=== PATIENT | female | born 1990 | race Caucasian/White ===

== ENCOUNTER 2021-01-02 11:37 | Emergency (ER) | payer OTHER ==
[2021-01-02 12:43] LABS: INR 1.13 (0.9-1.2); PROTHROMBIN TIME 13.9 SECONDS (11.8-13.4); PTT 24.6 SECONDS (24.4-34.7)
[2021-01-02 12:50] LABS: BILIRUBIN - TOTAL 0.6 mg/dL (0.2-1.0); BUN/CREAT RATIO (CALC) 16.4 RATIO; CREATININE 0.61 mg/dL (0.51-0.95); GLOBULIN (CALCULATION) 4.4 g/dL; POTASSIUM 3.5 mmol/L (3.5-5.1); TOTAL PROTEIN 8.4 g/dL (6.4-8.2)
[2021-01-02 13:07] LABS: BASOPHIL 0 % (0-2); EOSINOPHIL 0 % (0-5); HGB 15.6 g/dl (12.5-16.0); LYMPHOCYTE 7.2 % (15-48); MCH 28.9 pg (25.0-31.0); MCHC 33.9 g/dL (32.0-36.0); MCV 85.2 fL (78.0-100.0); MONOCYTE 4.5 % (0-12); MPV 9.3 fL (6.0-9.5); NEUTROPHIL 87.9 % (41-80); NRBC 0; PLT 284 K/uL (150-400); RDW 12.6 % (11.5-14.0); WBC 9.4 K/uL (4.0-10.5)
== END 2021-01-02 14:22 | disposition left against medical advice (07) ==
LOC: FER 11:37
PROVIDERS: Internal Medicine
DX: R55 Syncope and collapse (principal); R11.2 Nausea with vomiting, unspecified; R10.9 Unspecified abdominal pain; F17.210 Nicotine dependence, cigarettes, uncomplicated; Z88.8 Allergy status to other drugs, medicaments and biological substances; Z53.8 Procedure and treatment not carried out for other reasons
CPT/HCPCS: 36415; 70450; 71045; 80053; 84484; 85025; 85610; 85730; 93005; J2270; J2405; J7030; J7120

== ENCOUNTER 2021-01-04 07:50 | Emergency (ER) | payer OTHER ==
[~2021-01-04] VITALS: Ht 165.1 cm; Wt 76.2 kg
[2021-01-04 08:56] LABS: BASOPHIL 0.1 % (0-2); EOSINOPHIL 0.1 % (0-5); HCT 45.5 % (37.0-47.0); HGB 15.5 g/dl (12.5-16.0); LYMPHOCYTE 10.5 % (15-48); MCH 29.2 pg (25.0-31.0); MCHC 34.1 g/dL (32.0-36.0); MCV 85.7 fL (78.0-100.0); MONOCYTE 5.7 % (0-12); MPV 9.3 fL (6.0-9.5); NEUTROPHIL 83.1 % (41-80); NRBC 0; PLT 277 K/uL (150-400); RBC 5.31 M/uL (4.20-5.40); RDW 12.9 % (11.5-14.0); WBC 9.8 K/uL (4.0-10.5)
[2021-01-04 09:26] LABS: BILIRUBIN NEGATIVE (NEGATIVE); BLOOD NEGATIVE Ery/uL (NEGATIVE); CLARITY CLOUDY (CLEAR); COLOR YELLOW (YELLOW); GLUCOSE (U) NORMAL (NORMAL); LEUKOCYTES NEGATIVE Leu/uL (NEGATIVE); NITRITE NEGATIVE (NEGATIVE); PROTEIN NEGATIVE (NEGATIVE); SPECIFIC GRAVITY 1.015 (1.001-1.030); UROBILINOGEN 0.2 mg/dL (0.2-1.0); pH 7.5 (5.0-9.0)
[2021-01-04 09:29] LABS: ALBUMIN 4.4 g/dL (3.4-5.0); BILIRUBIN - TOTAL 0.6 mg/dL (0.2-1.0); BUN/CREAT RATIO (CALC) 13.9 RATIO; CREATININE 0.79 mg/dL (0.51-0.95); GLOBULIN (CALCULATION) 3.8 g/dL; POTASSIUM 3.5 mmol/L (3.5-5.1); TOTAL PROTEIN 8.2 g/dL (6.4-8.2)
[2021-01-04 09:30] LABS: C-REACTIVE PROTEIN < 0.20 mg/dL (<=0.90); LDH 124 U/L (81-234)
[2021-01-04] MEDS ORDERED: BENTYL10 MG PO (10:12)
[2021-01-04] MEDS ORDERED: PROMETHEGA12.5 MG/SU PR (10:12)
[2021-01-04] MEDS ORDERED: ONDANSETRON ODT4 MG PO (10:12)
== END 2021-01-04 10:52 | disposition home or self-care (01) ==
LOC: FER 07:50
PROVIDERS: Emergency Medicine
DX: K52.9 Noninfective gastroenteritis and colitis, unspecified (principal); R35.0 Frequency of micturition; Z88.8 Allergy status to other drugs, medicaments and biological substances
CPT/HCPCS: 36415; 80053; 81003; 82728; 83615; 83690; 84145; 85025; 86140; J1885; J7030; Q9967